=== PATIENT | female | born 2000 | race Caucasian/White ===

== ENCOUNTER 2023-05-01 13:02 | Emergency (ER) | payer OTHER, SELFPAY ==
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
[2023-05-01 13:07] VITALS: BP 140/82; PULSE 84; O2SAT 99
[2023-05-01 13:20] VITALS: BP 132/78; PULSE 76; RESP 18; TEMP 36.6; O2SAT 100; BMI 20.7
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
[2023-05-01] MEDS: Cyclobenzaprine HCl 5 MG TABLET PO (14:23)
[2023-05-01 15:56] VITALS: BP 144/77; PULSE 72; RESP 16; TEMP 36.9; O2SAT 96
[2023-05-01 17:34] VITALS: BP 00/00; PULSE 0; RESP 0; TEMP -17.7; TEMP 0
== END 2023-05-01 17:35 | disposition home or self-care (01) ==
PROVIDERS: Emergency Provider Emergency Medicine; PCP Internal Medicine
DX: Z04.1 Encounter for examination and observation following transport accident (principal); M54.2 Cervicalgia; M54.6 Pain in thoracic spine
CPT/HCPCS: 70450; 72125; 99283; 99284